=== PATIENT | male | born 2000 | race Hispanic/Latino ===

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

== ENCOUNTER 2021-05-07 05:06 | Inpatient (IN) | payer OTHER ==
[~2021-05-07] VITALS: Ht 180.3 cm; Wt 117.5 kg
[~2021-05-07 05:06] MED LIST: LEVO150 PO
[2021-05-07 05:15] VITALS: BP 163/99
[2021-05-07] MEDS ORDERED: LIDOCAINE HCL 1% 20 ML VIAL ONE (05:25)
[2021-05-07] MEDS ORDERED: ZOSYN IV ONE (05:30)
[2021-05-07] MEDS ORDERED: [UNRECOGNIZED DRUG - OTHER] IV ONE (05:30)
[2021-05-07] MEDS ORDERED: ONDANSETRON 4MG INJ IVP ONE (06:00)
[2021-05-07] MEDS ORDERED: MORPHINE 4 MG SYG IV ONE (06:00)
[2021-05-07] MEDS ORDERED: ONDANSETRON 4MG INJ ONE (06:01)
[2021-05-07] MEDS ORDERED: MORPHINE 4 MG SYG ONE (06:01)
[2021-05-07 06:05] LABS: BASOPHILS % (AUTO) 0.4 % (0.0-5.0); EOSINOPHILS % (AUTO) 0.5 % (0.0-8.0); HEMATOCRIT 33.2 % (42-54); LYMPHOCYTES % (AUTO) 20.6 % (21.0-51.0); MEAN CORPUSCULAR HEMOGLOBIN 27.9 pg (27.0-33.0); MEAN CORPUSCULAR HGB CONC 33.1 g/dL (32.0-36.0); MEAN CORPUSCULAR VOLUME 84.3 fL (79-99); MONOCYTES % (AUTO) 10.6 % (3.0-13.0); NEUTROPHILS % (AUTO) 67.5 % (40.0-77.0); PLATELET COUNT (AUTO) 245 K/uL (130-400); RED BLOOD CELL COUNT(AUTO) 3.94 MIL/uL (4.50-6.20); RED CELL DISTRIBUTION WIDTH 14.6 % (11.0-15.5); WHITE BLOOD COUNT (AUTO) 11.9 K/uL (4.8-10.8)
[2021-05-07 06:22] LABS: ALBUMIN 4.3 g/dL (3.5-5.0); BILIRUBIN,TOTAL 0.5 mg/dL (0.2-1.0); POTASSIUM 3.9 mmol/L (3.5-5.1)
[2021-05-07] MEDS ORDERED: ZOSYN 3.375GM+NS 50ML 50 ML ONE (06:23)
[2021-05-07] MEDS ORDERED: AMOX-429 PO (07:11)
[2021-05-07 07:38] VITALS: BP 96/52
[2021-05-07] MEDS ORDERED: VANCOMYCIN PROTOCOL PER PHARMACY IV SCH (08:00)
[2021-05-07] MEDS ORDERED: VANCOMYCIN 1G/250ML KIT 250 ML IV ONE (08:22)
[2021-05-07] MEDS ORDERED: VANCOMYCIN 500MG+NS 100ML 100 ML IV ONE (08:22)
[2021-05-07] MEDS: METRONIDAZOLE 500 MG TABLET PO SCH ×2 (08:27→15:16)
[2021-05-07] MEDS: CEFEPIME HCL 2 GM VIAL IVP SCH ×2 (08:27→19:13)
[2021-05-07] MEDS: VANCOMYCIN 1.5GM/NS 250ML IV SCH ×4 (08:28→21:02)
[2021-05-07] MEDS ORDERED: COMPOUND IV REFRIGERATED 1 EACH IVSOLN MISC PRN (08:30)
[2021-05-07 09:11] LABS: CRP QUANTITATIVE 116.2 mg/L (0.00-9.0)
[2021-05-07 11:19] LABS: BILIRUBIN,URINE Negative (NEGATIVE); COLOR,URINE Yellow (YELLOW); GLUCOSE, URINE (UA) Negative (NEGATIVE); KETONES,URINE Negative (NEGATIVE); LEUKOCYTE ESTERASE ,URINE Negative (NEGATIVE); NITRATE,URINE Negative (NEGATIVE); OCCULT BLOOD,URINE Negative (NEGATIVE); PH,URINE 5.5 (5.0-8.0); PROTEIN,URINE POS 1+ mg/dL (NEGATIVE)
[2021-05-07 11:23] LABS: APPEARANCE,URINE Clear (CLEAR)
[2021-05-07 11:59] VITALS: BP 102/39
[2021-05-07 14:30] VITALS: BP 108/83
[2021-05-07 15:04] VITALS: BP 134/68
[2021-05-07] MEDS: KETOROLAC 15MG/ML VIAL (15MG/ML) IV PRN (15:16)
[2021-05-07] MEDS ORDERED: 0.9% NACL 250ML 250 ML ONE (19:10)
[2021-05-07 19:43] VITALS: BP 108/51
[2021-05-08] VITALS (8 sets, daily range): BP systolic 103–144; BP diastolic 51–60
[2021-05-08] MEDS: METRONIDAZOLE 500 MG TABLET PO SCH ×4 (00:38→23:39)
[2021-05-08] MEDS: LEVOTHYROXINE 100 MCG TABLET PO SCH (06:24)
[2021-05-08 06:41] LABS: BASOPHILS % (AUTO) 0.5 % (0.0-5.0); EOSINOPHILS % (AUTO) 2.2 % (0.0-8.0); HEMATOCRIT 34.1 % (42-54); LYMPHOCYTES % (AUTO) 22.9 % (21.0-51.0); MEAN CORPUSCULAR HEMOGLOBIN 27.9 pg (27.0-33.0); MEAN CORPUSCULAR VOLUME 87.4 fL (79-99); MONOCYTES % (AUTO) 8.9 % (3.0-13.0); NEUTROPHILS % (AUTO) 65.1 % (40.0-77.0); PLATELET COUNT (AUTO) 239 K/uL (130-400); RED CELL DISTRIBUTION WIDTH 14.8 % (11.0-15.5); WHITE BLOOD COUNT (AUTO) 7.6 K/uL (4.8-10.8)
[2021-05-08 07:02] LABS: ALBUMIN 3.7 g/dL (3.5-5.0); BILIRUBIN,TOTAL 0.4 mg/dL (0.2-1.0); CREATININE 0.8 mg/dL (0.5-1.5); MAGNESIUM 2.4 mg/dL (1.80-2.40); POTASSIUM 4.4 mmol/L (3.5-5.1)
[2021-05-08] MEDS: CEFEPIME HCL 2 GM VIAL IVP SCH ×2 (09:14→19:27)
[2021-05-08] MEDS: VANCOMYCIN 1.5GM/NS 250ML IV SCH ×4 (09:15→21:01)
[2021-05-08] MEDS: KETOROLAC 15MG/ML VIAL (15MG/ML) IV PRN (14:47)
[2021-05-08] MEDS ORDERED: ACETAMINOPHEN 325 MG TAB ONE (14:52)
[2021-05-08] MEDS: MORPHINE 2 MG SYG IVP PRN (15:54)
[2021-05-09 03:48] VITALS: BP 106/43
[2021-05-09] MEDS: LEVOTHYROXINE 100 MCG TABLET PO SCH (06:17)
[2021-05-09] MEDS: ACETAMINOPHEN 325 MG TAB PO PRN ×3 (06:21→10:55)
[2021-05-09 07:30] VITALS: BP 84/48
[2021-05-09 09:00] LABS: BASOPHILS % (AUTO) 0.5 % (0.0-5.0); EOSINOPHILS % (AUTO) 2.6 % (0.0-8.0); HEMATOCRIT 35.3 % (42-54); LYMPHOCYTES % (AUTO) 27.6 % (21.0-51.0); MEAN CORPUSCULAR HEMOGLOBIN 27.7 pg (27.0-33.0); MEAN CORPUSCULAR HGB CONC 31.2 g/dL (32.0-36.0); MEAN CORPUSCULAR VOLUME 88.9 fL (79-99); MONOCYTES % (AUTO) 5.5 % (3.0-13.0); NEUTROPHILS % (AUTO) 63.2 % (40.0-77.0); PLATELET COUNT (AUTO) 261 K/uL (130-400); RED BLOOD CELL COUNT(AUTO) 3.97 MIL/uL (4.50-6.20); RED CELL DISTRIBUTION WIDTH 14.6 % (11.0-15.5); WHITE BLOOD COUNT (AUTO) 6.2 K/uL (4.8-10.8)
[2021-05-09 09:25] LABS: ALBUMIN 3.6 g/dL (3.5-5.0); BILIRUBIN,TOTAL 0.2 mg/dL (0.2-1.0); CREATININE 0.8 mg/dL (0.5-1.5); POTASSIUM 4.2 mmol/L (3.5-5.1); TOTAL PROTEIN, SERUM 7.8 g/dL (6.0-8.3)
[2021-05-09] MEDS: CEFEPIME HCL 2 GM VIAL IVP SCH ×2 (09:42→19:56)
[2021-05-09] MEDS: METRONIDAZOLE 500 MG TABLET PO SCH ×3 (09:42→23:18)
[2021-05-09] MEDS: VANCOMYCIN 1.5GM/NS 250ML IV SCH ×2 (09:43)
[2021-05-09 11:00] VITALS: BP_SYST 107; BP_SYST 108; BP_SYST 120; BP_DIAS 44; BP_DIAS 58; BP_DIAS 76
[2021-05-09 16:00] VITALS: BP 108/59
[2021-05-09] MEDS: MORPHINE 2 MG SYG IVP PRN (16:16)
[2021-05-09 20:00] VITALS: BP 107/46
[2021-05-09] MEDS ORDERED: ONDANSETRON 4MG INJ ONE (23:04)
[2021-05-09 23:17] VITALS: BP 95/52
[2021-05-09] MEDS: KETOROLAC 15MG/ML VIAL (15MG/ML) IV PRN (23:17)
[2021-05-09] MEDS ORDERED: ONDANSETRON 4MG INJ IVP PRN (23:30)
[2021-05-10 04:00] VITALS: BP 74/40
[2021-05-10 04:03] VITALS: BP 94/53
[2021-05-10 04:06] VITALS: BP 90/53
[2021-05-10] MEDS: LEVOTHYROXINE 100 MCG TABLET PO SCH (05:26)
[2021-05-10 06:03] LABS: BASOPHILS % (AUTO) 0.7 % (0.0-5.0); EOSINOPHILS % (AUTO) 3.1 % (0.0-8.0); HEMATOCRIT 34.6 % (42-54); LYMPHOCYTES % (AUTO) 31.2 % (21.0-51.0); MEAN CORPUSCULAR HEMOGLOBIN 27.8 pg (27.0-33.0); MEAN CORPUSCULAR HGB CONC 31.2 g/dL (32.0-36.0); MEAN CORPUSCULAR VOLUME 88.9 fL (79-99); MONOCYTES % (AUTO) 6.2 % (3.0-13.0); NEUTROPHILS % (AUTO) 58.4 % (40.0-77.0); PLATELET COUNT (AUTO) 279 K/uL (130-400); RED BLOOD CELL COUNT(AUTO) 3.89 MIL/uL (4.50-6.20); RED CELL DISTRIBUTION WIDTH 14.8 % (11.0-15.5); WHITE BLOOD COUNT (AUTO) 7.6 K/uL (4.8-10.8)
[2021-05-10 06:12] LABS: CREATININE 0.9 mg/dL (0.5-1.5); POTASSIUM 4.2 mmol/L (3.5-5.1)
[2021-05-10 07:30] VITALS: BP 89/32
[2021-05-10] MEDS: CEFEPIME HCL 2 GM VIAL IVP SCH (08:42)
[2021-05-10] MEDS: METRONIDAZOLE 500 MG TABLET PO SCH (08:48)
[2021-05-10 09:45] VITALS: BP 90/44
[2021-05-10] MEDS ORDERED: AMOX-429 PO (10:19)
[2021-05-10] MEDS ORDERED: LEVO100T4 PO (10:19)
[2021-05-10 11:00] VITALS: BP 112/49
[2021-05-10] MEDS: KETOROLAC 15MG/ML VIAL (15MG/ML) IV PRN (16:40)
== END 2021-05-10 17:22 | disposition home or self-care (01) | DRG 872 ==
LOC: EDH 05:06 → EDHIP 05:07 → 3DH 14:48
PROVIDERS: ADMIT Internal Medicine; ATTEND Internal Medicine
PROC: 0J993ZZ Drainage of Buttock Subcutaneous Tissue and Fascia, Percutaneous Approach (ICD-10-PCS; principal; 2021-05-07)
DX: A41.9 Sepsis, unspecified organism (principal); L05.01 Pilonidal cyst with abscess; M06.9 Rheumatoid arthritis, unspecified; K74.60 Unspecified cirrhosis of liver; E03.9 Hypothyroidism, unspecified; Z20.822 Contact with and (suspected) exposure to COVID-19; Z83.3 Family history of diabetes mellitus; Z82.5 Family history of asthma and other chronic lower respiratory diseases; Z82.49 Family history of ischemic heart disease and other diseases of the circulatory system
CPT/HCPCS: 36415; 74176; 80048; 80053; 80202; 81003; 83605; 83735; 84145; 85025; 86140; 87040; 87070; 87077; 87186; 87635; C9803; G0378; J0692; J1885; J2270; J2405; J2543; J3370; J7050